=== PATIENT | female | born 1965 | race Caucasian/White ===

== ENCOUNTER 2018-06-30 01:37 | Emergency (ER) | payer MEDICARE, MEDICAID ==
[2018-06-30] MEDS ORDERED: DEXAMETHASONE 4 MG TABLET PO ONE (02:43)
[2018-06-30] MEDS ORDERED: ACETAMINOPHEN 325 MG TABLET PO ONE (02:43)
[2018-06-30] MEDS ORDERED: CETIRIZINE 10 MG TABLET PO ONE (02:43)
--- NOTE | 2018-06-30 02:46 | ER Document Report ---
ED General - General Chief Complaint: Bee Sting Stated Complaint: BEE STING Time Seen by Provider: 06/30/18 02:01 Notes: Patient is a 53 year old female who presents with multiple wasp stings to the bilateral forearms. She states that this occurred several hours prior to arrival. She states that she went to bed but woke up it due to discomfort prompting her to come to the emergency department. She has tried ibuprofen and ice compresses at home with moderate improvement of her discomfort. She does describe this as a throbbing, aching, constant pain. Touching the area or moving the affected areas worsens the pain. No history of similar symptoms in the past. She denies difficulty breathing, throat tightness, vomiting, syncope or lightheadedness. She has not seen her general doctor regarding today's concerns. TRAVEL OUTSIDE OF THE [place] IN LAST 30 DAYS: No - Related Data Allergies/Adverse Reactions: sulfamethoxazole [From ] Allergy (Verified 05/20/15 13:47) trimethoprim [From ] Allergy (Verified 05/20/15 13:47) Sulfa (Sulfonamide Antibiotics) Adverse Reaction (Intermediate, Verified 13:47) joint pain Past Medical History - General Information source: Patient - Social History Smoking Status: Current Every Day Smoker Chew tobacco use (# tins/day): No Frequency of alcohol use: None Drug Abuse: None Lives with: Spouse/Significant other Family History: Reviewed & Not Pertinent, DM, Malignancy Patient has suicidal ideation: No Patient has homicidal ideation: No Pulmonary Medical History: Denies: Hx Tuberculosis Endocrine Medical History: Reports: Hx Graves' Disease, Hx Hypothyroidism Renal/ Medical History: Denies: Hx Peritoneal Dialysis Psychiatric Medical History: Reports: Hx Depression Past Surgical History: Reports: Hx Cholecystectomy - Immunizations Hx Diphtheria, Pertussis, Tetanus Vaccination: Yes Review of Systems - Review of Systems Notes: Constitutional: Negative for fever. HENT: Negative for sore throat. Eyes: Negative for visual changes. Cardiovascular: Negative for chest pain. Respiratory: Negative for shortness of breath. Gastrointestinal: Negative for abdominal pain, vomiting or diarrhea. Genitourinary: Negative for dysuria. Musculoskeletal: Negative for back pain. Skin: Positive for rash. Neurological: Negative for headaches, weakness or numbness. 10 point ROS negative except as marked above and in HPI. Physical Exam - Vital signs Vitals: Temp Pulse Resp BP Pulse Ox 97.6 F 55 L 16 139/99 H 97 06/30/18 01:45 06/30/18 01:45 06/30/18 01:45 06/30/18 01:45 06/30/18 01:45 Interpretation: Bradycardic Notes: PHYSICAL EXAMINATION: GENERAL: Well-appearing, well-nourished and in no acute distress. HEAD: Atraumatic, normocephalic. EYES: Pupils equal round and reactive to light, extraocular movements intact, sclera anicteric, conjunctiva are normal. ENT: nares patent, oropharynx clear without exudates. Moist mucous membranes. NECK: Normal range of motion, supple without lymphadenopathy LUNGS: Breath sounds clear to auscultation bilaterally and equal. No wheezes rales or rhonchi. HEART: Regular rate and rhythm without murmurs ABDOMEN: Soft, nontender, normoactive bowel sounds. No guarding, no rebound. No masses appreciated. EXTREMITIES: Normal range of motion, no pitting or edema. No cyanosis. NEUROLOGICAL: No focal neurological deficits. Moves all extremities spontaneously and on command. PSYCH: Normal mood, normal affect. SKIN: Warm, Dry, normal turgor, diffuse swelling of the dorsum of the left hand and over the forearm of the left arm. There is a patch of erythema consistent with a large urticarial patch on the right ventral forearm. Course - Re-evaluation Re-evalutation: 06/30/18 02:43 Patient presents with multiple thinks the bilateral forearms and hands most dominant on the left hand. Patient has no airway compromise. No vomiting or diarrhea. No symptoms to suggest a systemic reaction. Patient has self treated at home with ibuprofen with minimal improvement. She has been given a dose of dexamethasone as well as cetirizine in the emergency room. I will prescribe topical triamcinolone at home and I recommended cool compresses. No indication for labs or imaging. Vitals otherwise within normal limits. At this time will discharge with return precautions and follow-up recommendations. Verbal discharge instructions given a the bedside and opportunity for questions given. Medication warnings reviewed. Patient is in agreement with this plan and has verbalized understanding of return precautions and the need for primary care follow-up in the next 24-72 hours. - Vital Signs Vital signs: Temp Pulse Resp BP Pulse Ox 97.6 F 55 L 16 139/99 H 97 06/30/18 01:45 06/30/18 01:45 06/30/18 01:45 06/30/18 01:45 06/30/18 01:45 Discharge - Discharge Clinical Impression: Wasp sting Qualifiers: Encounter type: initial encounter Injury intent: accidental or unintentional Qualified Code(s): T63.461A - Toxic effect of venom of wasps, accidental ( unintentional), initial encounter Allergic reaction Qualifiers: Encounter type: initial encounter Qualified Code(s): T78.40XA - Allergy, unspecified, initial encounter Condition: Good Disposition: HOME, SELF-CARE Additional Instructions: You were seen today for multiple wasp stings. You can continue to take cetirizine 10mg up to 3 times daily as needed for itching and pain. Apply the topical steroid cream that has been prescribed as needed for severe inching. IF YOU DEVELOP DIFFICULTY BREATHING, VOMITING, LIGHTHEADEDNESS, RETURN TO THE ED IMMEDIATELY. Prescriptions: Triamcinolone Acetonide 80 gm TP TID #80 cream.gm. Referrals: LIS BRAGA MD [Primary Care Provider] - Follow up as needed
[2018-06-30 03:19] VITALS: BP 129/84
== END 2018-06-30 03:19 | disposition home or self-care (01) ==
LOC: ER 01:37
DX: T63.461A Toxic effect of venom of wasps, accidental (unintentional), initial encounter (principal); M79.89 Other specified soft tissue disorders; F17.200 Nicotine dependence, unspecified, uncomplicated; Z88.1 Allergy status to other antibiotic agents; Z88.2 Allergy status to sulfonamides
CPT/HCPCS: 99282; A9270 ×3